=== PATIENT | female | born 2005 | race Two or more races ===

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

== ENCOUNTER 2024-09-22 21:50 | Emergency (ER) | payer OTHER ==
[~2024-09-22] VITALS: Ht 162.6 cm; Wt 118.2 kg
[~2024-09-22 21:50] MED LIST changes: +IBUP-1456 PO
[2024-09-23 01:05] VITALS: BP 118/71; TEMP 98.7
[2024-09-23 01:25] LABS: Rapid Influenza A Negative (Negative); Rapid Influenza B Negative (Negative)
[2024-09-23 01:47] VITALS: PULSE 88; RESP 20; O2SAT 99
--- NOTE | 2024-09-23 02:23 | ED.PDOC ---
Eye-HPI HPI Comments 18-YEAR-OLD FEMALE PRESENTS TO THE ED CHIEF COMPLAINT FLU-LIKE SYMPTOMS X3 DAYS. PATIENT HE IS COMPLAINING OF COUGH, SORE THROAT, NAUSEA, SHORTNESS OF BREATH, FEVERS, RUNNY NOSE. TAKING [id number] MEDICATION WITH LITTLE RELIEF. DENIES RECENT TRAVEL, DIFFICULTY BREATHING, CHEST PAIN, DIARRHEA, OR RECENT ILL CONTACTS. Chief Complaint: Flu like Time Seen by MD: 22:43 Primary Care Provider: MOUSTAPHA Allergies: Coded Allergies: NO KNOWN ALLERGIES (Unverified , 03/17/10) Home Meds Active Scripts Methylprednisolone (Medrol Dosepak) 4 Mg Yannick, 4 MG PO UD for 6 Days, #21 TAB UAD Prov:ANUSHA PEREZ PROGRAM SUPPORT ASSISTANT 09/23/24 Amoxicillin & Pot Clavulanate (AUGMENTIN TABLET) 875 Mg Tb, 875 MG PO BID for 7 Days, #14 TAB Prov:ANUSHA PEREZ PROGRAM SUPPORT ASSISTANT 09/23/24 Ibuprofen (Ibuprofen) 800 Mg Tab, 1 TAB PO TID, #30 TAB Prov:RONNA BURLESON 03/29/22 Reported Medications Acetaminophen (Tylenol) 120 Mg Rc 03/17/10 Ibuprofen (Motrin) 100 Mg/5 Ml Ud 03/17/10 Mode of Arrival: Ambulatory Past Medical History PAST MEDICAL HISTORY: Denies Surgical History: Denies all surgeries UTILITY BAG ASSEMBLER History: No Pertinent UTILITY BAG ASSEMBLER History Family History Family History: Reviewed,noncontributory to illness Social History Lives In: Home Constitutional: reports: fever; denies: chills, diaphoresis, fatigue, malaise, sweats, weakness, others EENTM: reports: nasal discharge, throat pain; denies: blurred vision, double vision, ear bleeding, ear discharge, ear drainage, ear pain, ear ringing, eye pain, eye redness, hearing loss, mouth pain, mouth swelling, nose bleeding, nose congestion, nose pain, photophobia, tearing, throat swelling, voice changes, others Respiratory: reports: cough, SOB at rest; denies: hemoptysis, orthopnea, shortness of breath, SOB with excertion, stridor, wheezing, others Cardiovascular: denies: chest pain, dizzy spells, diaphoresis, Dyspnea on exertion, edema, irregular heart beat, left arm pain, lightheadedness, palpitations, PND, syncope, others Gastrointestinal: reports: nausea; denies: abdomen distended, abdominal pain, blood streaked bowels, constipated, diarrhea, dysphagia, difficulty swallowing, hematemesis, melena, poor appetite, poor fluid intake, rectal bleeding, rectal pain, vomiting, others Genitourinary: denies: abnormal vagina bleeding, burning, dyspareunia, dysuria, flank pain, frequency, hematuria, incontinence, pain, , vagina discharge, urgency, others Neurological: denies: dizziness, fainting, headache, left sided numbness, left sided weakness, numbness, paresthesia, pre-existing deficit, right sided numbness, right sided weakness, seizure, speech problems, tingling, tremors, weakness, others Musculoskeletal: denies: back pain, gout, joint pain, joint swelling, muscle pain, muscle stiffness, neck pain, others Integumetry: denies: bruises, change in color, change in hair/nails, dryness, laceration, lesions, lumps, rash, wounds, others Allergic/Immunocompromised: denies: Difficulty Healing, Frequent Infections, Hives, Itching, others Hematologic/Lymphatic: denies: anemia, blood clots, easy bleeding, easy bruis ing, swollen glands, others Endocrine: denies: excessive hunger, excessive sweating, excessive thirst, exc essive urination, flushing, intolerance to cold, intolerance to heat, unexplained weight gain, unexplained weight loss, others Psychiatric: denies: anxiety, bipolar disorder, depression, hopeless, panic disorder, schizophrenia, sleepless, suicidal, others Physical Exam General Appearance: No Apparent Distress, Normal HEENT: Pharyngeal Erythema, TMs Normal Neck: Full Range of Motion, Non-Tender Respiratory: Lungs Clear, No Accessory Muscle Use, No Respiratory Distress, Normal Breath Sounds Cardiovascular: No Edema, No JVD, No Murmur, No Gallop, Normal Peripheral Pulses, Regular Rate/Rhythm Breast Exam: Deferred Gastrointestinal: No Organomegaly, Non Tender, No Pulsatile Mass, Normal Bowel Sounds, Soft Genitalia: Deferred Pelvic: Deferred Rectal: Deferred Extremities: Normal capillary refill, Normal inspection, Normal range of motion, Non-tender, No pedal edema Musculoskeletal : Apperance: Normal Neurologic: Alert, supervisor sheet manufacturing II-XII nml as Tested, No Motor Deficits, Normal Affect, Normal Mood, No Sensory Deficits Cerebellar Function: Normal Reflexes: Normal Skin: Dry, Normal Color, Warm Lymphatic: No Adenopathy Was a procedure done? Was a procedure done?: No EENT DIFF Eye: N/A Sore Throat: Peritonsillar Abscess, Peritonsillar Cellulitis, Pharyngitis, Streptococcal, Viral Pharyngitis X-Ray, Labs, Meds, VS Vital Signs Date Time Temp Pulse Resp B/P (MAP) Pulse Ox O2 Delivery O2 Flow Rate FiO2 09/23/24 01:47 88 20 99 Room Air 09/23/24 01:05 98.7 88 20 118/71 (87) 99 98.7 09/22/24 22:00 99.5 105 14 138/69 (92) 98 Lab Test 09/22/24 22:09 Range/Units Influenza Type A Antigen Negative Negative Influenza Type B Antigen Negative Negative X-Ray, Labs, Meds, VS Comment INFLUENZA AB NEGATIVE. LIKELY UPPER RESPIRATORY INFECTION TRIAL ANTIBIOTICS AND MEDROL DOSEPAK. PATIENT GIVEN COUGH MEDICINE PRIOR TO DISCHARGE. HE IS TO REST INCREASE P.O. FLUIDS WITH ELECTROLYTES [id number] TYLENOL AND MOTRIN NEEDED FOR PAIN OR FEVER. FOLLOW UP WITH YOUR PCP IN 2-3 DAYS NECESSARY. ER RETURN PRECAUTIONS GIVEN PATIENT INDICATES UNDERSTANDING AND AGREES WITH DISCHARGE PLAN OF CARE. Time of 1ST Reevaluation: 02:24 Reevaluation 1ST: Improved Patient Education/Counseling: Diagnosis, Treatment, Prognosis, Need For Follow Up Family Education/Counseling: Diagnosis, Treatment, Prognosis, Need For Follow Up Departure 1 Departure Time of Disposition: 02:24 Impression: Primary Impression: Upper respiratory infection, acute Disposition: 01 HOME / SELF CARE / HOMELESS Condition: Stable e-Prescriptions Methylprednisolone (Medrol Dosepak) 4 Mg Yannick 4 MG PO UD for 6 Days, #21 TAB UAD Prov: ANUSHA PEREZ 09/23/24 Amoxicillin & Pot Clavulanate (AUGMENTIN TABLET) 875 Mg Tb 875 MG PO BID for 7 Days, #14 TAB Prov: ANUSHA PEREZ 09/23/24 Discharged With: Other ([facility]) Critical Care Note Critical Care Time?: No Stability Stability form required: ANUSHA Xiao Sep 23, 2024 02:23
[2024-09-23] MEDS ORDERED: AUG875T PO (02:25)
[2024-09-23] MEDS ORDERED: METH4PAK PO (02:25)
[2024-09-23] MEDS: PROMETHAZINE-DM 5 ML ORAL SYRUP PO ONE (02:30)
== END 2024-09-23 02:33 | disposition home or self-care (01) ==
LOC: ER 21:50
DX: J06.9 Acute upper respiratory infection, unspecified (principal); R50.9 Fever, unspecified; R11.0 Nausea; Z79.1 Long term (current) use of non-steroidal anti-inflammatories (NSAID); Z79.899 Other long term (current) drug therapy
CPT/HCPCS: 87804